=== PATIENT | female | born 1970 | race Caucasian/White ===

== ENCOUNTER 2021-11-05 11:02 | Emergency (ER) | payer OTHER ==
[~2021-11-05] VITALS: Ht 165.1 cm; Wt 73.5 kg
[2021-11-05 11:22] LABS: *BILIRUBIN,URIN NEGATIVE (NEGATIVE); *CLARITY,URINE CLEAR (CLEAR); *COLOR,URINE YELLOW (YELLOW); *KETONES,URINE NEGATIVE (NEGATIVE); *UROBILINOGEN,URINE 0.2 E.U./dl (NORMAL); LEUKOCYTE ESTERASE ,URINE NEGATIVE (NEGATIVE); NITRITE, URINE NEGATIVE (NEGATIVE); PH,URINE 5.5 (5.0-8.0); UGLUCOSE NEGATIVE (NEGATIVE)
[2021-11-05 11:24] LABS: *URINE HCG, QUAL NEGATIVE (NEGATIVE)
[2021-11-05 11:26] LABS: *BLOOD, URINE TRACE (NEGATIVE)
[2021-11-05] MEDS ORDERED: SWABABLE VALVE TRANSFER SET EA MC ONE (11:26)
[2021-11-05] MEDS ORDERED: IV NORMAL SALINE 250 ML IV ONE (11:26)
[2021-11-05] MEDS ORDERED: IOHEXOL 300MG/ML 100 ML INFUS..BTL ONE (11:26)
[2021-11-05] MEDS ORDERED: MORPHINE SULFATE 4 MG/1 ML DISP.SYRIN IV ONE (11:30)
[2021-11-05 11:32] LABS: RBC,URINE 0-3 /HPF (0-3); WBC,URINE 0-3 /HPF (0-3)
[2021-11-05 11:33] LABS: BACTERIA,URINE NONE SEEN /HPF (NONE SEEN); SQUAMOUS EPITHELIAL CELL,UR FEW /HPF (NONE SEEN)
--- NOTE | 2021-11-05 11:41 | NUR ---
Pt signed consent for IV contrasted CT. placed in the chart.
[2021-11-05 11:44] LABS: HEMATOCRIT 41.1 % (31.2-41.9); MEAN CORPUSCULAR VOLUME 88.6 fL (75.5-95.3); PLATELET COUNT (AUTO) 233 K/uL (179-408)
[2021-11-05] MEDS ORDERED: MORPHINE SULFATE 4 MG/1 ML DISP.SYRIN ONE (11:44)
[2021-11-05 11:51] LABS: CREATININE 0.7 mg/dL (0.6-1.3)
[2021-11-05 11:56] LABS: BILIRUBIN,TOTAL 0.3 mg/dL (0.2-1.0); TOTAL PROTEIN, SERUM 7.4 g/dL (6.4-8.2)
--- NOTE | 2021-11-05 12:53 | NUR ---
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
[2021-11-05] MEDS ORDERED: HYDR28OI8 TP (13:14)
[2021-11-05 13:26] VITALS: BP 112/67
--- NOTE | 2021-11-05 13:26 | NUR ---
IV removed. Catheter intact and site benign. Pressure and 4x4 gauze applied to site. No bleeding noted.
--- NOTE | 2021-11-05 13:27 | NUR ---
Patient discharged to home in stable condition. Written and verbal after care instructions given. Patient verbalizes understanding of instructions. Stressed follow up or return to ER for worsening s/s.
== END 2021-11-05 13:27 | disposition home or self-care (01) ==
LOC: ER 11:02
DX: R10.31 Right lower quadrant pain (principal); D72.819 Decreased white blood cell count, unspecified; Z20.822 Contact with and (suspected) exposure to COVID-19
CPT/HCPCS: 36415; 74177; 76856; 80053; 81001; 84703; 85025; 86304; 87426; 96374; 99285; J2270; Q9967; A4663; J7050